=== PATIENT | female | born 1975 | race Caucasian/White ===

== ENCOUNTER 2016-06-24 15:27 | Emergency (ER) | payer OTHER ==
[~2016-06-24] VITALS: Ht 165.1 cm; Wt 65.8 kg
[2016-06-24 15:33] VITALS: BP 133/72
--- NOTE | 2016-06-24 17:08 | NUR ---
PATIENT TO BED 8 AT THIS TIME.
--- NOTE | 2016-06-24 17:18 | NUR ---
Patient being evaluated by Dr. Hawkins at bedside.
--- NOTE | 2016-06-24 17:20 | NUR ---
40/F presents to ED for evaluation of epigastric pain since Thursday. Pt c/o epigastric pain, stabbing, intermittent, 12/02. Pt states "I've never had pain like this before." Patient also c/o N/V/D. Patient states diarrhea started this morning. Pt also c/o nausea, vomiting. No vomiting noted at this time. Patient is AOX4, ambulatory with steady gait. VSS.
[2016-06-24] MEDS ORDERED: ONDANSETRON 4 MG ODT PO ONE (17:40)
--- NOTE | 2016-06-24 17:46 | NUR ---
Lab at bedside.
--- NOTE | 2016-06-24 18:00 | NUR ---
Patient taken to x-ray via w/c.
[2016-06-24 18:02] LABS: HEMATOCRIT 41.9 % (36-48); HEMOGLOBIN 13.9 g/dL (12.0-16.0); MEAN CORPUSCULAR HEMOGLOBIN 29 pg (27-31); MEAN CORPUSCULAR HGB CONC 33 g/dL (33-37); MEAN CORPUSCULAR VOLUME 86 fL (80-94); PLATELET COUNT (AUTO) 278 K/uL (140-450); RED BLOOD CELL COUNT(AUTO) 4.86 MIL/uL (4.20-5.40); RED CELL DISTRIBUTION WIDTH 13.2 % (11.6-13.7); WHITE BLOOD COUNT (AUTO) 11.8 K/uL (4.8-10.8)
[2016-06-24 18:12] LABS: ANION GAP 10.4 (8-16); CALCIUM 8.4 mg/dL (8.5-10.1); CARBON DIOXIDE 29.5 mmol/L (21-32); CREATININE 0.9 mg/dL (0.6-1.3); POTASSIUM 3.9 mmol/L (3.5-5.1)
--- NOTE | 2016-06-24 18:14 | NUR ---
Patient returned from x-ray via w/c.
[2016-06-24 18:18] LABS: ALBUMIN 3.6 g/dL (3.4-5.0); PROTHROMBIN TIME 9.7 secs (10.8-13.4); TOTAL BILIRUBIN 0.4 mg/dL (0.0-1.0)
[2016-06-24 18:19] LABS: BAND % (MANUAL) 8 % (0-8); LYMPHOCYTES % (MANUAL) 6 % (20-46); MONOCYTES % (MANUAL) 2 % (5-12); NEUTROPHILS % (MANUAL) 84 (43-65); PLATELET ESTIMATE ADEQUATE
[2016-06-24 19:08] VITALS: BP 126/74
--- NOTE | 2016-06-24 19:08 | NUR ---
Patient discharged with v/s stable. Written and verbal after care instructions given and explained. Patient alert, oriented and verbalized understanding of instructions. Ambulatory with steady gait. All questions addressed prior to discharge. ID band removed. Patient advised to follow up with PMD. Rx of MIRALAX POWDER SO.,TRAMADOL,ZOFRAN given. Patient educated on indication of medication including possible reaction and side effects. Opportunity to ask questions provided and answered.
--- NOTE | 2016-06-24 19:08 | NUR ---
Chart checked and completed. The patient's care was reviewed and supervised by Radha Gomez RN.
== END 2016-06-24 19:08 | disposition home or self-care (01) ==
LOC: MED 15:27
DX: K59.00 Constipation, unspecified (principal)
CPT/HCPCS: 36415; 74022; 80053; 81002; 81025; 85025; 85610; 85730; 99285; S0119

== ENCOUNTER 2020-02-23 12:52 | Emergency (ER) | payer OTHER, SELFPAY ==
[~2020-02-23] VITALS: Ht 165.1 cm; Wt 63.5 kg
[2020-02-23 12:58] VITALS: BP 125/77
--- NOTE | 2020-02-23 13:09 | NUR ---
44/F BIB SELF C/O MID CHEST PAIN X 2 DAYS. COVID TESTED + 02/18/20.
[2020-02-23 13:58] VITALS: BP 125/77
--- NOTE | 2020-02-23 13:58 | NUR ---
Patient discharged with v/s stable. Written and verbal after care instructions given and explained. Patient alert, oriented and verbalized understanding of instructions. Ambulatory with steady gait. All questions addressed prior to discharge. ID band removed. Patient advised to follow up with PMD. Rx of naprosyn 500mg BID PRN pain, albuterol 90mcg/actuation inhalation aerosol q4h PO given. Patient educated on indication of medication including possible reaction and side effects. Opportunity to ask questions provided and answered.
== END 2020-02-23 13:58 | disposition home or self-care (01) ==
LOC: MED 12:52
DX: U07.1 COVID-19 (principal)
CPT/HCPCS: 71045; 99283

== ENCOUNTER 2021-09-14 19:49 | Emergency (ER) | payer OTHER ==
[~2021-09-14] VITALS: Ht 165.1 cm; Wt 66.7 kg
[2021-09-14 19:53] VITALS: BP 143/77
--- NOTE | 2021-09-14 20:00 | NUR ---
Patient waited in Lobby.
--- NOTE | 2021-09-14 20:10 | NUR ---
Patient taken to radiology dept via wheel chair.
--- NOTE | 2021-09-14 20:55 | NUR ---
Dr. Cruz examining patient.
[2021-09-14] MEDS ORDERED: KETOROLAC 30 MG/ML VIAL IM ONE (21:05)
[2021-09-14] MEDS ORDERED: IBUP-2213 PO (21:09)
--- NOTE | 2021-09-14 21:45 | NUR ---
The patient's care was reviewed and supervised by Quynh Ho RN.
== END 2021-09-14 21:41 | disposition home or self-care (01) ==
LOC: MED 19:49
DX: S83.91XA Sprain of unspecified site of right knee, initial encounter (principal); Z79.899 Other long term (current) drug therapy; W18.30XA Fall on same level, unspecified, initial encounter; Y93.66 Activity, soccer; Y92.89 Other specified places as the place of occurrence of the external cause; Y99.8 Other external cause status
CPT/HCPCS: 73562; 96372; 99283; J1885

== ENCOUNTER 2022-01-26 07:29 | Emergency (ER) | payer OTHER ==
[~2022-01-26] VITALS: Ht 165.1 cm; Wt 69.9 kg
[~2022-01-26 07:29] MED LIST: IBUP-2213 PO
[2022-01-26 07:49] VITALS: BP 136/94
--- NOTE | 2022-01-26 08:38 | NUR ---
HERE FOR BODYACHE FOR TWO WEEKS, NO DISTRESS NOTED, AWAITS MD DOMINIQUE
[2022-01-26] MEDS ORDERED: ONDA-188 PO (10:45)
[2022-01-26] MEDS ORDERED: FAMO-92 PO (10:45)
[2022-01-26 10:58] VITALS: BP 136/88
--- NOTE | 2022-01-26 10:59 | NUR ---
Patient discharged with v/s stable. Written and verbal after care instructions given and explained. Patient verbalized understanding. Ambulatory with steady gait. All questions addressed prior to discharge. Advised to follow up with PMD.
== END 2022-01-26 11:15 | disposition home or self-care (01) ==
LOC: MED 07:29
DX: R11.2 Nausea with vomiting, unspecified (principal); Z78.0 Asymptomatic menopausal state; Z98.890 Other specified postprocedural states; Z79.899 Other long term (current) drug therapy; Z79.1 Long term (current) use of non-steroidal anti-inflammatories (NSAID)
CPT/HCPCS: 36415; 81025; 84702; 99283

== ENCOUNTER 2022-06-25 18:52 | Emergency (ER) | payer OTHER ==
[~2022-06-25] VITALS: Ht 167.6 cm; Wt 68.0 kg
[~2022-06-25 18:52] MED LIST changes: +FAMO-92 PO; +ONDA-188 PO
[2022-06-25 19:04] VITALS: BP 143/86
--- NOTE | 2022-06-25 20:30 | NUR ---
Dr. Souza examining patient.
[2022-06-25] MEDS ORDERED: KETOROLAC 60 MG/2 ML VIAL IM ONE (20:35)
--- NOTE | 2022-06-25 20:36 | NUR ---
ASSUMED CARE C/O MD BACK PAIN. RIB CAGE AREA , NO N/V/D OR PROBLEM EATING , NO FEVER, NO KNOWN TRAUMA
[2022-06-25] MEDS ORDERED: ACET-8905 PO (20:44)
[2022-06-25] MEDS ORDERED: IBUP-2213 PO (20:44)
--- NOTE | 2022-06-25 20:46 | NUR ---
PAIN MEDS GIVE ASORDERED
--- NOTE | 2022-06-25 20:50 | NUR ---
Patient discharged with v/s stable. Written and verbal after care instructions given and explained. Patient alert, oriented and verbalized understanding of instructions. Ambulatory with steady gait. All questions addressed prior to discharge. ID band removed. Patient advised to follow up with PMD. Rx of NORCO, MOTRIN given. Patient educated on indication of medication including possible reaction and side effects. Opportunity to ask questions provided and answered.
== END 2022-06-25 21:00 | disposition home or self-care (01) ==
LOC: MED 18:52
DX: R07.89 Other chest pain (principal); R06.02 Shortness of breath; M54.6 Pain in thoracic spine; Z79.899 Other long term (current) drug therapy; Z79.1 Long term (current) use of non-steroidal anti-inflammatories (NSAID)
CPT/HCPCS: 96372; 99283; J1885